=== PATIENT | female | born 1965 | race Hispanic/Latino ===

== ENCOUNTER 2021-06-13 01:11 | Observation (INO) | payer BC ==
[2021-06-13] MEDS ORDERED: SODIUM CHLORIDE 0.9% 10ML INJ IV PRN (03:15)
[2021-06-13] MEDS ORDERED: CYCLOBENZAPRINE 10 MG TAB PO PRN (03:15)
[2021-06-13] MEDS ORDERED: ONDANSETRON 4 MG/2 ML VIAL IV PRN (03:15)
[2021-06-13] MEDS ORDERED: MORPHINE 2 MG/ML SYR IV PRN (03:15)
[2021-06-13] MEDS ORDERED: ACETAMINOPHEN 500 MG TAB PO PRN (03:15)
[2021-06-13 03:21] VITALS: BMI 38.0
--- NOTE | 2021-06-13 03:32 | P.HP ---
Certification for Inpatient Patient admitted to: Observation With expected LOS: <2 Midnights Patient will require the following post-hospital care: None Practitioner: I am a practitioner with admitting privileges, knowledge of patient current condition, hospital course, and medical plan of care. Services: Services provided to patient in accordance with Admission requirements found in Title 42 Section 412.3 of the Code of Federal Regulations <Chente Maria - Last Filed: 06/13/21 03:26> Patient History Date of Service: 06/13/21 Primary Care Provider: None previously Dr. Hendrickson Reason for admission: Abdominal pain/back pain History of Present Illness: 55-year-old female with history of diabetes mellitus type 2, hypertension, hyperlipidemia presented to stand-alone emergency department for abdominal pain/diarrhea. Patient reports a constellation of symptoms including decreased sensation to the abdominal wall skin, pain in right posterior shoulder exacerbated by palpation, generalized abdominal pain, diarrhea. Patient was seen at [place] emergency department on and had medications prescribed for musculoskeletal pain including muscle relaxants and anti-inflammatories, patient reports that her pain got better for 2 days but then got worse requiring her to go to stand-alone emergency department [place] last night. Patient was evaluated at [place] with lab work and CT scan, CT scan of the abdomen with contrast demonstrated cholelithiasis without signs of cholecystitis, fatty liver, normal appendix, no free fluid or free air labs were significant for white blood cell count 14.4 glucose 352 BUN 23 sodium 134 potassium 4.3 bicarb 27 troponin negative amylase normal, they are unable to obtain lipase at that facility transfer was requested to our facility for further evaluation of abdominal pain/back pain. When I saw the patient in the exam room she was awake, alert, oriented x3, abdomen is soft, nondistended and nontender. - Past Medical/Surgical History Has patient received pneumonia vaccine in the past: No Diabetic: Yes -: Diabetes mellitus type 2 -: Hypertension -: Hyperlipidemia -: -: Left broken ankle Psychosocial/ Personal History: Works with computer software, lives at home with her - Family History Mother -: Lung disease Father -: Diabetes - Social History Smoking Status: Never smoker Alcohol use: Yes CD- Drugs: No Caffeine use: Yes Place of Residence: Home <Chente Maria - Last Filed: 10/18/21 03:26> Date of Service: 06/13/21 <Edith Chao - Last Filed: 06/20/21 01:23> Allergies codeine [Codeine] Allergy (Verified 11/18/11 19:16) Rash Review of Systems 10-point ROS is otherwise unremarkable Gastrointestinal: Abdominal Pain, Other (Decrease sensation abdominal wall skin) Genitourinary: Frequency Musculoskeletal: Shoulder Pain, Back Pain <Chente Maria - Last Filed: 06/13/21 03:26> Physical Examination - Physical Exam General: Alert, In no apparent distress, Oriented x3 HEENT: Atraumatic, PERRLA, Mucous membr. moist/pink, EOMI, Sclerae nonicteric Neck: Supple, 2+ carotid pulse no bruit, No LAD, Without JVD or thyroid abnormality Respiratory: Clear to auscultation bilaterally, Normal air movement Cardiovascular: Regular rate/rhythm, Normal S1 S2 Gastrointestinal: Normal bowel sounds, No tenderness Musculoskeletal: No tenderness Integumentary: No rashes Neurological: Normal gait, Normal speech, Normal strength at 5/5 x4 extr, Normal tone, Cranial nerves 3-12 intact, Normal affect, Abnormal sensation (Reports decreased sensation to abdominal wall skin otherwise intact) - Studies Laboratory Data (last 24 hrs) 06/13/21 03:18: Troponin I Cancelled <Chente Maria - Last Filed: 06/13/21 03:26> Assessment and Plan - Plan Assessment: Abdominal/epigastric/back pain/diarrhea with leukocytosis Diabetes mellitus type 2 with hyperglycemia Hypertension Hyperlipidemia Plan: Abdominal/epigastric/back pain/diarrhea with leukocytosis: CT scan/labs unremarkable from all at this aside from mild leukocytosis, this could be explained by patient taking oral steroids for musculoskeletal pain last few days. Will obtain ultrasound to further evaluate gallbladder for cholecystitis, lipase level as they were unable to obtain this at stand-alone emergency department. Will provide medication for pain/nausea. Will obtain stool studies as patient is now having diarrhea as well. Abdomen soft, nondistended and not significantly tender at this time. Will provide Protonix as well for possible gastritis, patient informed that if work-up is negative she will need further evaluation from GI. Patient also complains of decreased sensation to the skin of her abdominal wall, nowhere else on her body is this present, informed that she will likely need to follow-up with neurology if this continues. Patient with completely normal neurological exam and sensation is otherwise intact. We will also trend troponin levels. Diabetes mellitus type 2 with hyperglycemia: ACH is Accu-Chek, sliding scale insulin therapy. Obtain and continue medications. A1c. Hypertension: Continue home medications Hyperlipidemia: Continue home medications DVT PPX: Lovenox Code status: Full Discharge Plan: Home Plan to discharge in: 24 Hours - Advance Directives Does patient have a Living Will: No Does patient have a Durable POA for Healthcare: No - Code Status/Comfort Care Code Status Assessed: Yes (Full code) Critical Care: No Time Spent Managing Pts Care (In Minutes): 55 <Chente Maria - Last Filed: 06/13/21 03:26> Date of Service: 06/13/21 Subjective: Agree with the HPI as above Physical Examination: Vitals: Afebrile vital signs are stable Physical exam: Cardiovascular: Within normal limits. Lungs: Within normal limits Abdomen: Within normal limits Neuro: Awake, alert, oriented to person place and time Assessment: 1. Abdominal pain Plan: 1. Continue with current plan of care; abdominal ultrasound pending and will review CT report <Edith Chao - Last Filed: 06/20/21 01:23>
[2021-06-13 03:51] LABS: Absolute Lymphocytes (CBC) 1.9 K/uL (0.7-4.9); Basophils % 0.8 % (0-1.3); Hematocrit 41.7 % (36.0-45.0); Lymphocytes % 15.9 % (15.3-44.8); MPV 7.8 fL (7.6-11.3); RBC Red Blood Cell Count 4.94 M/uL (3.86-4.86)
[2021-06-13 04:26] LABS: Albumin 3.7 g/dL (3.4-5.0); Bilirubin Total 0.9 mg/dL (0.2-1.0); Magnesium 1.9 mg/dL (1.8-2.4); Potassium 3.9 mmol/L (3.5-5.1); Protein, Total 7.8 g/dL (6.4-8.2); Thyroid Stimulating Hormone 2.2 uIU/mL (0.360-3.740)
[2021-06-13] MEDS: TRAMADOL HCL 50 MG TAB PO PRN ×3 (05:41→21:47)
[2021-06-13 05:48] LABS: Urine Appearance CLEAR (Clear); Urine Bilirubin NEGATIVE (Negative); Urine Blood NEGATIVE (Negative); Urine Color YELLOW (Yellow); Urine Glucose 3+ (Negative); Urine Protein NEGATIVE (Negative); Urine Specific Gravity >=1.030 (1.005-1.030); Urine Urobilinogen 0.2 mg/dL (0.2-1.0)
[2021-06-13 05:56] LABS: Urine Microscopic Reflex NO UMIC
[2021-06-13] MEDS: INSULIN -REGULAR HUMAN 50 UNIT/0.5 ML ML SQ SCH ×4 (07:30→20:51)
--- NOTE | 2021-06-13 07:34 | RAD REPORT ---
EXAM DESCRIPTION: US - Abdomen Exam Limited - 06/13/2021 6:10 am CLINICAL HISTORY: eval gallbladder COMPARISON: CT-STONE PROTOCOL dated 07/18/2009 FINDINGS: The gallbladder demonstrates shadowing gallstone. The stone is non mobile. No pericholecys tic fluid or gallbladder wall thickening. The common bile duct is normal measuring 4 mm. The liver demonstrates no findings of intrahepatic biliary dilatation. IMPRESSION: Cholelithiasis with non-mobile stone at the gallbladder neck. No sonographic evidence of cholecystitis, however. If persistent clinical concern for cholecystitis, consider HIDA scan.
[2021-06-13] MEDS: NA CHLORIDE 0.9% 1,000 ML IV SCH ×2 (08:05→20:51)
[2021-06-13] MEDS ORDERED: NA CHLORIDE 0.9% 1,000 ML ONE (08:26)
[2021-06-13] MEDS ORDERED: PANTOPRAZOLE 40 MG INJ IVP SCH (09:00)
[2021-06-13] MEDS ORDERED: POTASSIUM CL SA 10 MEQ TAB PO ONE (09:00)
[2021-06-13] MEDS: ENOXAPARIN 40 MG/0.4 ML SQ SCH (10:18)
--- NOTE | 2021-06-13 15:54 | RAD REPORT ---
EXAM DESCRIPTION: CT - Chest For Pe Angio - 06/13/2021 3:26 pm CLINICAL HISTORY: elevated ddimer COMPARISON: No comparisons TECHNIQUE: Dynamically enhanced 3 mm thick images of the chest were obtained during administration o f approximately 150mL Isovue 370 IV contrast. Coronal and oblique MIP reconstruction images were gene rated and reviewed. Exam utilizes a protocol to evaluate the pulmonary arterial tree. All CT scans are performed using dose optimization technique as appropriate and may include automated exposure control or mA/KV adjustment according to patient size. FINDINGS: No pulmonary emboli are identified. The aorta as imaged shows no acute or suspicious finding. No pericardial thickening or effusion. No infiltrate or mass in the lung parenchyma. No pleural effusion or pleural thickening. No mediastinal or hilar suspicious masses. No chest wall masses or abnormal axillary lymphadenopathy. Limited imaging of the abdomen shows 1 moderately large gallstone. No biliary dilatation evident. IMPRESSION: No pulmonary emboli identified. No other significant or suspicious chest finding. Cholelithiasis without acute cholecystitis findings.
[2021-06-13 16:02] LABS: Urine Bacteria <20 /HPF (<20); Urine RBC NONE SEEN /HPF (NONE SEEN)
[2021-06-13 21:56] VITALS: O2SAT 100
[2021-06-14 05:47] LABS: BUN Blood Urea Nitrogen 11 mg/dL (7-18); Bicarbonate 23 mmol/L (21-32); Glucose Level 174 mg/dL (74-106); Potassium 4.1 mmol/L (3.5-5.1); Sodium Level 135 mmol/L (136-145)
[2021-06-14] MEDS: TRAMADOL HCL 50 MG TAB PO PRN ×2 (06:37→13:11)
[2021-06-14] MEDS: INSULIN -REGULAR HUMAN 50 UNIT/0.5 ML ML SQ SCH (07:30)
[2021-06-14 08:00] VITALS: BP 164/89; TEMP 97.8
[2021-06-14] MEDS: ENOXAPARIN 40 MG/0.4 ML SQ SCH (08:12)
[2021-06-14] MEDS ORDERED: PANTOPRAZOLE 40 MG INJ IVP SCH (09:00)
[2021-06-15] MEDS ORDERED: PANTOPRAZOLE 40MG TABLET PO SCH (06:30)
--- NOTE | 2021-06-20 01:22 | P.DS ---
Discharge Date: 06/14/21 Primary Care Provider: None previously Dr. Hendrickson Disposition: ROUTINE DISCHARGE Discharge Condition: GOOD Reason for Admission: Abdominal pain/back pain Brief History of Present Illness: 55-year-old female with history of diabetes mellitus type 2, hypertension, hyperlipidemia presented to stand-alone emergency department for abdominal pain/diarrhea. Patient reports a constellation of symptoms including decreased sensation to the abdominal wall skin, pain in right posterior shoulder exacerbated by palpation, generalized abdominal pain, diarrhea. Patient was seen at [place] emergency department on and had medications prescribed for musculoskeletal pain including muscle relaxants and anti-inflammatories, patient reports that her pain got better for 2 days but then got worse requiring her to go to stand-alone emergency department [place] last night. Patient was evaluated at [place] with lab work and CT scan, CT scan of the abdomen with contrast demonstrated cholelithiasis without signs of cholecystitis, fatty liver, normal appendix, no free fluid or free air labs were significant for white blood cell count 14.4 glucose 352 BUN 23 sodium 134 potassium 4.3 bicarb 27 troponin negative amylase normal, they are unable to obtain lipase at that facility transfer was requested to our facility for further evaluation of abdominal pain/back pain. When I saw the patient in the exam room she was awake, alert, oriented x3, abdomen is soft, nondistended and nontender. Hospital Course: Patient had cholelithiasis with no evidence of cholecystitis. Patient still having some abdominal pain. LFTs are normal. Lipase is normal. No evidence of any significant abnormality. Continue with anxiolytics and pain medication at discharge. At this time, patient is stable for discharge home. Patient will need to follow with Gastroenterology as well as General surgery. Vital Signs/Physical Exam: Temp Pulse Resp BP Pulse Ox 97.8 F 77 15 164/89 H 100 06/14/21 07:59 06/14/21 07:59 06/14/21 07:59 06/14/21 07:59 06/14/21 07:59 General: Alert, In no apparent distress, Oriented x3 Laboratory Data at Discharge: WBC 11.70 K/uL (4.3-10.9) H 06/13/21 03:38 Hgb 13.9 g/dL (12.0-15.0) 06/13/21 03:38 Hct 41.7 % (36.0-45.0) 06/13/21 03:38 Plt Count 265 K/uL (152-406) 06/13/21 03:38 Sodium 135 mmol/L (136-145) L 06/14/21 05:18 Potassium 4.1 mmol/L (3.5-5.1) 06/14/21 05:18 BUN 11 mg/dL (7-18) 06/14/21 05:18 Creatinine 0.60 mg/dL (0.55-1.3) 06/14/21 05:18 Glucose 174 mg/dL (74-106) H 06/14/21 05:18 Magnesium 1.9 mg/dL (1.8-2.4) 06/13/21 03:38 Total Bilirubin 0.9 mg/dL (0.2-1.0) 06/13/21 03:38 AST 15 U/L (15-37) 06/13/21 03:38 ALT 37 U/L (12-78) 06/13/21 03:38 Alkaline Phosphatase 99 U/L (45-117) 06/13/21 03:38 Troponin I < 0.02 ng/mL (0.0-0.045) 06/13/21 10:14 Lipase 115 U/L (73-393) 06/13/21 03:38 Home Medications: Empagliflozin/Metformin HCl [Synjardy Xr 5-1,000 mg Tablet] 2 pill PO DAILY 06/13/21 Etodolac 500 mg PO BID 06/13/21 Liraglutide [Saxenda] 3 mg SQ DAILY 06/13/21 Losartan Potassium 50 mg PO DAILY 06/13/21 Simvastatin 20 mg PO DAILY 06/13/21 Cyclobenzaprine [Flexeril*] 10 mg PO BIDP PRN #30 tab 06/14/21 Hydrocodone 5/APAP 325 [[place] 5/325] 1 - 2 tab PO Q6H PRN #40 tab 06/14/21 dexAMETHasone [Dexamethasone] 2 mg PO BID #6 tablet 06/14/21 New Medications: dexAMETHasone [Dexamethasone] 2 mg PO BID #6 tablet Cyclobenzaprine [Flexeril*] 10 mg PO BIDP PRN #30 tab PRN Reason: Muscle Spasms Hydrocodone 5/APAP 325 [[place] 5/325] 1 - 2 tab PO Q6H PRN #40 tab PRN Reason: Pain Physician Discharge Instructions: OK TO DC IV AND DC HOME FOLLOW-UP WITH PRIMARY CARE PROVIDER IN 1-2 WEEKS RETURN TO THE ER IF SYMPTOMS WORSEN CALL or TEXT DR. LEONARD AT [phone] IF ANY QUESTIONS REGARDING HOSPITAL STAY. PLEASE CALL THE FLOOR AT [phone] IF ANY MEDICATION OR NURSING QUESTIONS. Diet: AHA Activity: Fall precautions Time spent managing pt's care (in minutes): 35
== END 2021-06-14 13:23 | disposition home or self-care (01) ==
LOC: 2ND 02:22
PROVIDERS: ADMIT Hospitalist; ATTEND Hospitalist
DX: K80.20 Calculus of gallbladder without cholecystitis without obstruction (principal); E11.65 Type 2 diabetes mellitus with hyperglycemia; R19.7 Diarrhea, unspecified; I10 Essential (primary) hypertension; E78.5 Hyperlipidemia, unspecified; K76.0 Fatty (change of) liver, not elsewhere classified; Z83.6 Family history of other diseases of the respiratory system; Z83.3 Family history of diabetes mellitus
CPT/HCPCS: 85025; 80048; 36415 ×2; 83735; 82947 ×7; 83605; 84443; 83036; 84484 ×2; 84439; 83690; 80053; 84145; 71275; 76705; Q9967; C9113 ×2; J1650 ×2; J7030 ×2; J2405; G0379; G0378 ×2; 81003; 81015